=== PATIENT | female | born 1985 | race Caucasian/White ===

== ENCOUNTER 2017-09-06 12:26 | Outpatient (CLI) | payer OTHER | END 2017-09-06 12:27 | disposition critical access hospital (66) | LOC: EMS 12:26 | PROVIDERS: ATTEND Surgery | DX: M25.572 Pain in left ankle and joints of left foot (principal); W10.8XXA Fall (on) (from) other stairs and steps, initial encounter; Y92.018 Other place in single-family (private) house as the place of occurrence of the external cause | CPT/HCPCS: A0425; A0427 ==

== ENCOUNTER 2017-09-06 12:50 | Emergency (ER) | payer OTHER ==
[2017-09-06] MEDS ORDERED: HYDROmorphone 1 MG/ML SYRINGE IVP STA (12:58)
[2017-09-06] MEDS ORDERED: ONDANSETRON 4 MG/2 ML VIAL IVP STA ×2 (12:58→14:15)
[2017-09-06] MEDS ORDERED: HYDROmorphone 1 MG/ML SYRINGE ONE (13:09)
[2017-09-06] MEDS ORDERED: ONDANSETRON 4 MG/2 ML VIAL ONE ×2 (13:11→14:10)
[2017-09-06] MEDS ORDERED: KETAMINE 500 MG/10 ML VIAL ONE (13:38)
--- NOTE | 2017-09-06 13:50 | XRAY Preliminary Report ---
Exam: XR ANKLE 3 VIEW RT IMPRESSION: 1. Dorsal dislocation of the ankle joint. 2. Suspicion of a small fracture of the distal tibial articular margin. [facility] SITE ID: [id number]
--- NOTE | 2017-09-06 13:53 | XRAY Report ---
EXAM: RIGHT ANKLE RADIOGRAPHY EXAM DATE: 09/06/2017 01:32 PM. CLINICAL HISTORY: Fall and ankle deformity. COMPARISON: None. TECHNIQUE: 3 views. FINDINGS: Bones: A 3 mm ossicle projecting along the articular margin of the distal tibia on the mortise view, consistent with a small slightly distracted fracture. Joints: Dorsal dislocation of the tibiotalar joint with prominent anterior joint space widening on th e crosstable lateral view. Moderate widening of medial ankle mortise and mild lateral offset of the t alar dome relative to the distal tibia. No obvious widening of the distal syndesmosis. Possible small joint effusion. Soft Tissues: Moderate swelling. IMPRESSION: 1. Dorsal dislocation of the ankle joint. 2. Suspicion of a small fracture of the distal tibial articular margin. [facility] Referring Provider Line: [phone] SITE ID: [id number]
--- NOTE | 2017-09-06 13:57 | XRAY Preliminary Report ---
Exam: XR TIB/FIB RT IMPRESSION: 1. The ankle and distal tibia/fibula are better seen on the concurrent right ankle series. See right ankle report. 2. Unremarkable more proximal tibia and fibula. [facility] SITE ID: [id number]
--- NOTE | 2017-09-06 14:00 | XRAY Report ---
EXAM: RIGHT TIBIA/FIBULA RADIOGRAPHY EXAM DATE: 09/06/2017 01:32 PM. CLINICAL HISTORY: Fall and ankle deformity. COMPARISON: Concurrent right ankle series today. TECHNIQUE: 2 views. FINDINGS: Bones: The distal tibia and fibula are better seen on the separate right ankle series. More proximal tibia and fibula appear unremarkable. Joints: No subluxation of the knee joint. The ankle joint is better seen on the right ankle series. Soft Tissues: Possible mild swelling distally. IMPRESSION: 1. The ankle and distal tibia/fibula are better seen on the concurrent right ankle series. See right ankle report. 2. Unremarkable more proximal tibia and fibula. [facility] Referring Provider Line: [phone] SITE ID: [id number]
[2017-09-06] MEDS ORDERED: KETAMINE 500 MG/10 ML VIAL IVP STA (14:15)
--- NOTE | 2017-09-06 14:25 | XRAY Preliminary Report ---
Exam: XR ANKLE 3 VIEW RT IMPRESSION: Reduction of dislocation. Suspect distal tibial defect with loose body. [facility] SITE ID: [id number]
--- NOTE | 2017-09-06 14:28 | XRAY Report ---
EXAM: RIGHT ANKLE RADIOGRAPHY EXAM DATE: 09/06/2017 02:10 PM. CLINICAL HISTORY: Post reduction. COMPARISON: An earlier study of this same date. TECHNIQUE: 3 views. FINDINGS: Bones: Small rounded defect in anterior distal tibial metaphysis seen on lateral view, not well visua lized on other views, possibly a donor site for a loose body. No other evidence of fracture or bone l esion. Joints: Previous dislocation has been reduced. Symmetrical mortise at this time. Soft Tissues: Soft tissue swelling. IMPRESSION: Reduction of dislocation. Suspect distal tibial defect with loose body. [facility] Referring Provider Line: [phone] SITE ID: [id number]
[2017-09-06 15:20] VITALS: BP 113/68
--- NOTE | 2017-09-06 15:58 | ED Physician Documentation ---
History of Present Illness - Stated complaint Stated Complaint: ANKLE FX /DISLOCATION - Chief complaint Chief Complaint: Ext Problem - History obtained from History obtained from: Patient (pt arrived by EMS after she tripped going down the stairs and injured her right ankle. No other injury from the event. obvious deformity.) - History of Present Illness Timing: Prior to arrival Review of Systems Constitutional: denies: Fever, Chills Cardiac: denies: Chest pain / pressure, Palpitations Respiratory: denies: Cough GI: denies: Abdominal Pain, Nausea, Vomiting, Constipation : denies: Dysuria Skin: denies: Rash, Laceration (s) Musculoskeletal: reports: Other (right ankle pain and deformity) Neurologic: reports: Other (no tingling to the right LE) PD PAST MEDICAL HISTORY - Past Medical History Past Medical History: No - Past Surgical History Past Surgical History: No - Present Medications Home Medications: Ambulatory Orders Medication Instructions Recorded Confirmed HYDROcod/ACETAM 5/325 [[place] 5/325] 1 - 2 ea PO Q6H PRN #15 tablet 09/06/17 Ondansetron Odt [Zofran] 4 mg TL Q6H PRN #10 tablet 09/06/17 - Allergies Allergies/Adverse Reactions: Allergies Allergy/AdvReac Type Severity Reaction Status Date / Time bupropion [From Wellbutrin] Allergy Rash Verified 09/06/17 12:57 - Social History Does the pt smoke?: No Smoking Status: Never smoker Does the pt drink ETOH?: No Does the pt have substance abuse?: No - Immunizations Immunizations are current?: Yes PD ED PE NORMAL - Vitals Vital signs reviewed: Yes - General General: Alert and oriented X 3. No: No acute distress (mild distress) - Cardiac Cardiac: RRR, No murmur, No gallop, Strong equal pulses (DP) - Respiratory Respiratory: No respiratory distress, Clear bilaterally - Abdomen Abdomen: Soft, Non tender, Non distended - Derm Derm: Normal color, No rash, Other (no skin changes to the right LE an ankle) - Extremities Extremities: Other (right ankel TTP and deformity. ) - Neuro Neuro: Alert and oriented X 3 Eye Opening: Spontaneous Motor: Obeys Commands Verbal: Oriented GCS Score: 15 - Psych Psych: Normal mood, Normal affect Results - Vitals Vitals: Vital Signs - 24 hr 09/06/17 09/06/1709/06/17 12:53 13:38 13:49 Temperature 36.8 C Heart Rate 73 89 109 H Respiratory 16 16 14 Rate Blood Pressure 105/61 120/76 120/76 O2 Saturation 100 100 100 09/06/17 09/06/17 09/06/17 13:50 13:51 13:57 Temperature Heart Rate 90 79 Respiratory 16 16 Rate Blood Pressure 120/76 140/81 H O2 Saturation 100 100 100 09/06/17 09/06/17 09/06/17 14:02 14:09 15:19 Temperature Heart Rate 78 85 74 Respiratory 14 16 15 Rate Blood Pressure 133/80 H 129/79 113/68 O2 Saturation 100 100 98 Oxygen O2 Source Room air - Rads (name of study) right ankle Radiology: Final report received (dorsal dislocation fot eh right ankle with small fx of the distal tibila articular region) post redustion Radiology: Final report received Procedures - Splint (location) right leg Splint applied by: Physician Type of splint: Posterior, Other Other: Patient tolerated well, No complications, Neurovascular intact - Reduction Body part reduced: Right, Ankle Fracture or dislocation: Dislocation Anesthesia: Other (ketamine) Reduction aftercare: NV intact, Xray confirms reduction, Alignment improved, Splint applied, Sling PD MEDICAL DECISION MAKING - ED course Complexity details: d/w patient ED course: pt with dislocation of the right ankle after the fall. no other injury form the fall. pt sedated with 140mg of ketamine and reduction completed. pt was N/ V intact. discussed case with Dr Malave and the possible FB. he stated to place in splint and no operation needed. pt informed of this. informed her that she needed to follow up with her PCM to discuss further treatment. Departure - Departure Disposition: 01 Home, Self Care Clinical Impression: Dislocation, ankle Qualifiers: Encounter type: initial encounter Laterality: right Qualified Code(s): S93.04XA - Dislocation of right ankle joint, initial encounter Condition: Good Instructions: ED Dislocated Ankle, ED Crutch Walking Follow-Up: primary,care provider [Other] Prescriptions: HYDROcod/ACETAM 5/325 [[place] 5/325] 1 - 2 ea PO Q6H PRN #15 tablet PRN Reason: Pain Ondansetron Odt [Zofran] 4 mg TL Q6H PRN #10 tablet PRN Reason: Nausea / Vomiting Comments: keep the splint on and keep it clean and dry. Follow up with your primary care provider next week. Return to the ER for any new or worsening symptoms.
== END 2017-09-06 16:34 | disposition home or self-care (01) ==
LOC: EDUNIT# → ED 12:50
DX: S93.04XA Dislocation of right ankle joint, initial encounter (principal); W10.9XXA Fall (on) (from) unspecified stairs and steps, initial encounter
CPT/HCPCS: 27840; 73590; 73610; 96374; 96375; 96376; 99284; J1170

== ENCOUNTER 2019-01-11 09:41 | Emergency (ER) | payer OTHER ==
[2019-01-11 09:50] VITALS: BP 110/77
--- NOTE | 2019-01-11 11:07 | ED Physician Documentation ---
PD HPI URI - Stated complaint Stated Complaint: EAR PAIN - Chief complaint Chief Complaint: Heent - History obtained from History obtained from: Patient - History of Present Illness Timing - onset: How many days ago (2) Timing duration: Days (2) Timing details: Abrupt onset Associated symptoms: Ear pain (since yesterday), Nasal congestion (a week ago, improving), Dry cough. No: Fever, Sore throat, NVD Similar symptoms before: Has not had sx before Recently seen: Not recently seen Review of Systems Constitutional: denies: Fever Ears: reports: Ear pain. 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 : None HEENT: None Psych: None Musculoskeletal: None Derm: None - Past Surgical History Past Surgical History: No General: Other - Present Medications Home Medications: Ambulatory Orders Medication Instructions Recorded Confirmed HYDROcod/ACETAM 5/325 [[place] 5/325] 1 - 2 ea PO Q6H PRN #15 tablet 09/06/17 Ondansetron Odt [Zofran] 4 mg TL Q6H PRN #10 tablet 09/06/17 Amoxicillin 500 mg PO TID #21 capsule 01/11/19 Cetirizine [ZyrTEC] 10 mg PO DAILY #15 tablet 01/11/19 Dexamethasone [Decadron] 4 mg PO DAILY #5 tablet 01/11/19 - Allergies Allergies/Adverse Reactions: Allergies Allergy/AdvReac Type Severity Reaction Status Date / Time bupropion [From Wellbutrin] Allergy Rash Verified 01/11/19 09:50 - Social History Does the pt smoke?: No Smoking Status: Never smoker Does the pt drink ETOH?: No Does the pt have substance abuse?: No - Immunizations Immunizations are current?: Yes - POLST Patient has POLST: No PD ED PE NORMAL - Vitals Vital signs reviewed: Yes - General General: Alert and oriented X 3, Well developed/nourished - HEENT HEENT: Atraumatic, Moist mucous membranes, Pharynx benign. No: Ears normal (right is normal. Left with marked redness and bulging of the TM. Canal is okay. ) Results - Vitals Vitals: Vital Signs - 24 hr 01/11/19 09:49 Temperature 36.5 C Heart Rate 76 Respiratory 18 Rate Blood Pressure 110/77 O2 Saturation 100 Oxygen O2 Source Room air Departure - Departure Disposition: 01 Home, Self Care Clinical Impression: Otitis media Qualifiers: Otitis media type: suppurative Chronicity: acute Laterality: left Recurrence: non-recurrent Spontaneous tympanic membrane rupture: without spontaneous rupture Qualified Code(s): H66.002 - Acute suppurative otitis media without spontaneous rupture of ear drum, left ear Condition: Stable Record reviewed to determine appropriate education?: Yes Instructions: ED Otitis Media Serous Adult Prescriptions: Amoxicillin 500 mg PO TID #21 capsule Cetirizine [ZyrTEC] 10 mg PO DAILY #15 tablet Dexamethasone [Decadron] 4 mg PO DAILY #5 tablet Comments: Stay well-hydrated. Tylenol or ibuprofen if needed for pains. Amoxicillin 3 times a day for a week as directed for the infection. Decadron steroid anti- inflammatory and cetirizine antihistamine to reduce inflammation and promote better drainage from the middle ear. Recheck if not improving over the next several days or so. Discharge Date/Time: 01/11/19 12:06
[2019-01-11] MEDS ORDERED: DEXAMETHASONE 10 MG/ML VIAL PO STA (11:31)
[2019-01-11] MEDS ORDERED: AMOXICILLIN 250 MG CAPSULE PO STA (11:31)
[2019-01-11] MEDS ORDERED: CETIRIZINE 10 MG TABLET PO STA (11:31)
[2019-01-11] MEDS ORDERED: ACETAMINOPHEN 325 MG TABLET PO STA (11:32)
[2019-01-11] MEDS ORDERED: CHERRY SYRUP 10 ML UDC PO ONE (11:43)
== END 2019-01-11 12:06 | disposition home or self-care (01) ==
LOC: ED 09:41
DX: H66.002 Acute suppurative otitis media without spontaneous rupture of ear drum, left ear (principal)
CPT/HCPCS: 99283; A9270

== ENCOUNTER 2019-09-15 12:30 | Outpatient (CLI) | payer OTHER ==
--- NOTE | 2019-09-15 15:16 | Ultrasound Report ---
Reason: LT BREAST LUMP, FAMILY H/O BREAST CA Procedure Date: 09/15/2019 Accession Number: [id number] / [id number] Procedure: US - Breast Unilateral Limited CPT Code: Final Report FULL RESULT: EXAM: Diagnostic Kenny Bilat, Breast Unilateral Limited DATE: 09/15/2019 1:32 PM CLINICAL HISTORY: The patient is a 34-year-old female presenting with a palpable lump in the left breast. Maternal history breast cancer. BILATERAL MAMMOGRAM TECHNIQUE: (B) - Bilateral CC and MLO views were obtained. Diagnostic views of the left breast. PARENCHYMAL PATTERN: (VD) - The breasts demonstrate extremely dense parenchyma bilaterally, limiting the sensitivity of mammography. FINDINGS: Nonspecific asymmetry noted on this baseline study. There are no suspicious masses, calcifications, or areas of distortion. There is no mammographic abnormality in the area of reported palpable concern in the left breast. LEFT BREAST ULTRASOUND: TECHNIQUE: A high-frequency transducer was utilized to evaluate the area of palpable concern in the upper outer quadrant. Doppler performed. Reversing [place] static images obtained. FINDINGS: Prominent ridge of fibrous tissue is identified in the area palpable concern. No cyst, solid mass, distortion or hyperemia. No sonographic suspicious findings. IMPRESSION: Benign findings. BI-RADS category 2. RECOMMENDATION: ( Recommend clinical follow-up. Benign imaging should not dissuade further evaluation of any suspicious changes. Routine screening mammography is recommended (annual age 40. BI-RADS CATEGORY: (2) - Benign Findings. STANDARD QUALIFYING STATEMENTS: 1. This examination was not reviewed with the aid of Computer-Aided Detection (CAD). 2. A negative or benign imaging report should not preclude biopsy if clinically suspicious findings are present. 3. Dense breasts may obscure an underlying neoplasm. 4. This examination was reviewed with the aid of 3D breast imaging (tomosynthesis).
== END 2019-09-15 12:31 | disposition home or self-care (01) ==
LOC: DI 12:30
PROVIDERS: ATTEND Family Medicine
DX: N63.20 Unspecified lump in the left breast, unspecified quadrant (principal)
CPT/HCPCS: 76642; 77066

== ENCOUNTER 2022-01-04 07:48 | Outpatient (CLI) | payer OTHER ==
[2022-01-04 12:27] LABS: BASOPHILS # (AUTO) 0.1 10^3/uL (0.0-0.1); EOSINOPHILS # (AUTO) 0.1 10^3/uL (0.0-0.7); EOSINOPHILS % (AUTO) 1.8 %; HCT - HEMATOCRIT 40.7 % (37.0-47.0); HGB - HEMOGLOBIN 13.8 g/dL (12.0-16.0); LYMPHOCYTES # (AUTO) 1.5 10^3/uL (1.5-3.5); LYMPHOCYTES % (AUTO) 21.7 %; MEAN CORPUSCULAR HEMOGLOBIN 32.2 pg (27.0-31.0); MEAN CORPUSCULAR HGB CONC 33.9 g/dL (32.0-36.0); MEAN CORPUSCULAR VOLUME 94.9 fL (81.0-99.0); MEAN PLATELET VOLUME 9.8 fL (7.9-10.8); MONOCYTES # (AUTO) 0.5 10^3/uL (0.0-1.0); NEUTROPHILS # (AUTO) 4.6 10^3/uL (1.5-6.6); NEUTROPHILS % (AUTO) 68.2 %; PLT - PLATELET COUNT 341 10^3/uL (130-450); RED BLOOD COUNT 4.29 10^6/uL (4.20-5.40); RED CELL DISTRIBUTION WIDTH 12.4 % (12.0-15.0); WHITE BLOOD COUNT 6.7 x10^3/uL (4.8-10.8)
[2022-01-04 12:51] LABS: ALBUMIN 4.6 g/dL (3.2-5.5); ALBUMIN/GLOBULIN RATIO 1.5 (1.0-2.2); ALKALINE PHOSPHATASE 41 IU/L (42-121); ALT ALANINE AMINOTRANSFERASE 20 IU/L (10-60); AST ASPARTATE AMINOTRANSFERASE 23 IU/L (10-42); BILIRUBIN,TOTAL 0.4 mg/dL (0.2-1.0); BUN - BLOOD UREA NITROGEN 15 mg/dL (6-20); CARBON DIOXIDE - CO2 27 mmol/L (21-32); CHLORIDE 102 mmol/L (101-111); CHOL/HDL RATIO 2.8 (<4.4); CHOLESTEROL 229 mg/dL; CREATININE 0.7 mg/dL (0.4-1.0); GFR - MDRD 94 (>89); GLUCOSE 89 mg/dL (70-100); HDL CHOLESTEROL 81 mg/dL; LDL CHOLESTEROL,CALCULATED 121 mg/dL; LDL/HDL RATIO 1.5 (<4.4); POTASSIUM 4.3 mmol/L (3.5-5.0); SODIUM 140 mmol/L (135-145); TOTAL PROTEIN 7.6 g/dL (6.7-8.2); TRIGLYCERIDES 136 mg/dL; VLDL CHOLESTEROL 27 mg/dL
[2022-01-04 13:03] LABS: THYROID STIMULATING HORMONE 1.94 uIU/mL (0.34-5.60)
[2022-01-04 13:04] LABS: FREE T3 3.91 pg/mL (2.5-3.9)
[2022-01-04 13:05] LABS: FREE T4 (FREE THYROXINE) 0.71 ng/dL (0.58-1.64)
== END 2022-01-04 07:49 | disposition home or self-care (01) ==
LOC: LAB.N 07:48
PROVIDERS: ATTEND Physician Assistant
DX: Z13.9 Encounter for screening, unspecified (principal); Z13.220 Encounter for screening for lipoid disorders; Z86.39 Personal history of other endocrine, nutritional and metabolic disease
CPT/HCPCS: 36415; 80053; 80061; 82306; 83721; 84439; 84443; 84481; 85025

== ENCOUNTER 2024-01-03 08:56 | Outpatient (CLI) | payer OTHER ==
[2024-01-03 12:21] LABS: BASOPHILS # (AUTO) 0.1 10^3/uL (0.0-0.1); BASOPHILS % (AUTO) 1.7 %; EOSINOPHILS # (AUTO) 0.2 10^3/uL (0.0-0.7); EOSINOPHILS % (AUTO) 3.1 %; HCT - HEMATOCRIT 42.6 % (37.0-47.0); HGB - HEMOGLOBIN 13.8 g/dL (12.0-16.0); LYMPHOCYTES # (AUTO) 1.4 10^3/uL (1.5-3.5); LYMPHOCYTES % (AUTO) 28.1 %; MEAN CORPUSCULAR HEMOGLOBIN 31.2 pg (27.0-31.0); MEAN CORPUSCULAR HGB CONC 32.4 g/dL (32.0-36.0); MEAN CORPUSCULAR VOLUME 96.4 fL (81.0-99.0); MEAN PLATELET VOLUME 9.5 fL (7.9-10.8); MONOCYTES # (AUTO) 0.4 10^3/uL (0.0-1.0); MONOCYTES % (AUTO) 8.5 %; NEUTROPHILS # (AUTO) 2.8 10^3/uL (1.5-6.6); NEUTROPHILS % (AUTO) 58.4 %; PLT - PLATELET COUNT 365 10^3/uL (130-450); RED BLOOD COUNT 4.42 10^6/uL (4.20-5.40); RED CELL DISTRIBUTION WIDTH 12.3 % (12.0-15.0); WHITE BLOOD COUNT 4.8 x10^3/uL (4.8-10.8)
[2024-01-03 12:52] LABS: ALBUMIN 4.5 g/dL (3.2-5.5); ALBUMIN/GLOBULIN RATIO 1.7 (1.0-2.2); ALKALINE PHOSPHATASE 49 IU/L (42-121); ALT ALANINE AMINOTRANSFERASE 14 IU/L (10-60); AST ASPARTATE AMINOTRANSFERASE 19 IU/L (10-42); BILIRUBIN,TOTAL 0.8 mg/dL (0.2-1.0); BUN - BLOOD UREA NITROGEN 13 mg/dL (6-20); CALCIUM 9.5 mg/dL (8.5-10.3); CARBON DIOXIDE - CO2 29 mmol/L (21-32); CHLORIDE 105 mmol/L (101-111); CHOL/HDL RATIO 3.2 (<4.4); CHOLESTEROL 227 mg/dL; CREATININE 0.7 mg/dL (0.6-1.3); GFR - MDRD 93 (>89); GLUCOSE 114 mg/dL (74-104); HDL CHOLESTEROL 71 mg/dL; LDL CHOLESTEROL,CALCULATED 132 mg/dL; LDL/HDL RATIO 1.9 (<4.4); POTASSIUM 4.2 mmol/L (3.5-4.5); SODIUM 138 mmol/L (135-145); TOTAL PROTEIN 7.1 g/dL (6.4-8.9); TRIGLYCERIDES 120 mg/dL (48-352); VLDL CHOLESTEROL 24 mg/dL
[2024-01-03 12:57] LABS: THYROID STIMULATING HORMONE 1.87 uIU/mL (0.34-5.60)
== END 2024-01-03 08:57 | disposition home or self-care (01) ==
LOC: LAB.N 08:56
PROVIDERS: ATTEND Physician Assistant
DX: Z00.00 Encounter for general adult medical examination without abnormal findings (principal); E55.9 Vitamin D deficiency, unspecified; Z13.228 Encounter for screening for other metabolic disorders; Z13.220 Encounter for screening for lipoid disorders; Z86.39 Personal history of other endocrine, nutritional and metabolic disease
CPT/HCPCS: 36415; 80053; 80061; 82306; 83721; 84443; 85025

== ENCOUNTER 2024-01-23 08:06 | Outpatient (CLI) | payer OTHER ==
[2024-01-23 12:40] LABS: ESTIMATED AVERAGE GLUCOSE 97 mg/dL (70-100)
[2024-01-24 08:11] LABS: ESTRADIOL 22.9 pg/mL (.); PROGESTERONE 0.8 ng/mL (.)
== END 2024-01-23 08:07 | disposition home or self-care (01) ==
LOC: LAB.N 08:06
PROVIDERS: ATTEND Physician Assistant
DX: N95.1 Menopausal and female climacteric states (principal); R73.01 Impaired fasting glucose
CPT/HCPCS: 36415; 82670; 83001; 83036; 84144; 84403